=== PATIENT | female | born 1980 | race Caucasian/White ===

== ENCOUNTER 2020-05-10 13:33 | Observation (INO) | payer OTHER ==
[~2020-05-10] VITALS: Ht 161 cm; Wt 80.3 kg
== END 2020-05-10 15:00 | disposition home or self-care (01) ==
LOC: 4S 13:33
PROVIDERS: ADMIT Obstetrics & Gynecology; ATTEND Obstetrics & Gynecology
DX: O09.523 Supervision of elderly multigravida, third trimester (principal); Z3A.39 39 weeks gestation of pregnancy
CPT/HCPCS: 59025; 99219